=== PATIENT | female | born 1955 | race Caucasian/White ===

== ENCOUNTER 2016-06-26 07:20 | Day surgery (SDC) | payer MEDICAID ==
[~2016-06-26 07:20] MED LIST: BALANCED SALT IRRIG SOLN 15 ML OPHT.BTL ONE; DEXAMETHASONE 10 MG/ML VIAL IVP ONE; LIDO/EPI 1% **Not for Epidural 20 ML MDV ONE; METHYLENE BLUE 0.5% 50 MG/10 ML AMP ONE; MINERAL OIL 10 ML VIAL TP ONE; SKIN ADHESIVE (DERMABOND) 1 EACH TP ONE; ceFAZolin 2 GM/DEXTROSE 100 ML IV ONE
[2016-06-26] MEDS ORDERED: DEXAMETHASONE 10 MG/ML VIAL ONE (08:38)
[2016-06-26] MEDS ORDERED: CEFAZOLIN 2 GM/DEXTROSE/100 ML BAG IV ONE (08:40)
[2016-06-26] MEDS ORDERED: LR 1,000 ML IV ONE (08:45)
[2016-06-26] MEDS ORDERED: LIDOCAINE 1% 5 ML SDV ID PRN (08:45)
[2016-06-26 08:49] LABS: ANION GAP 10 mEq/L (8-16); CALCIUM 9.7 mg/dL (8.5-10.4); CARBON DIOXIDE 27 mEq/l (22-31); CHLORIDE 104 mEq/L (97-110); CREATININE 0.8 mg/dL (0.6-1.0); GLOMERULAR FILTRATION RATE > 60; GLUCOSE 113 mg/dL (70-100); POTASSIUM 3.6 mEq/L (3.5-5.2); SODIUM 141 mEq/L (134-144)
[2016-06-26] MEDS ORDERED: PROPOFOL 200 MG/20 ML VIAL ONE (10:13)
[2016-06-26] MEDS ORDERED: ROCURONIUM 50 MG/5 ML VIAL ONE (10:13)
[2016-06-26] MEDS ORDERED: fentaNYL 250 MCG/5 ML INJ ONE (10:13)
[2016-06-26] MEDS ORDERED: DEXAMETHASONE 4 MG/ML VIAL ONE ×2 (10:13)
[2016-06-26] MEDS ORDERED: METOCLOPRAMIDE 10 MG/2 ML VIAL ONE (10:14)
[2016-06-26] MEDS ORDERED: LIDOCAINE 2% 100 MG/5 ML SYR ONE (10:14)
[2016-06-26] MEDS ORDERED: MIDAZOLAM 2 MG/2 ML VIAL ONE (10:14)
[2016-06-26] MEDS ORDERED: SUGAMMADEX SODIUM 200 MG/2 ML VIAL IVP ONE (10:21)
[2016-06-26] MEDS ORDERED: REMIFENTANIL HCL 1 MG VIAL ONE (10:59)
[2016-06-26] MEDS ORDERED: LIDO/EPI 1% **Not for Epidural 20 ML MDV ONE (11:35)
[2016-06-26] MEDS ORDERED: SKIN ADHESIVE (DERMABOND) 1 EACH TP ONE (12:26)
--- NOTE | 2016-06-26 15:55 | GOP ---
[f rep st] OPERATIVE REPORT DATE OF OPERATION: 06/26/2016 SURGEON: Lucero Sage MD PYROGLAZER: None. ANESTHESIA: General endotracheal. PREOPERATIVE DIAGNOSIS: POSTOPERATIVE DIAGNOSIS: PROCEDURE PERFORMED: 1. Wide local excision of malignant scalp lesion - primary lesion measured 2 cm x 1.4 cm. 2. Margins of 2 cm for wide local excision performed with a total of a 6 cm diameter defect of the scalp. 3. Bilateral neck sentinel lymph node biopsy. FINDINGS: SPECIMENS: 1. Scalp wide local excision. Sutures marked as anterior. 2. Left neck nonsentinel lymph node. Neoprobe count less than 10. However, lymph node was incidental in my field. 3. Left neck sentinel lymph node biopsy, level 2, Neoprobe counter at over 4000 , additionally blue due to the methylene injection. 4. Right neck sentinel lymph node #2, level 3, Neoprobe count 550. 5. Right neck sentinel lymph node #3, level 3, Neoprobe count 350. 6. Right neck level 3 nonsentinel lymph node, less than 10 count by Neoprobe. ESTIMATED BLOOD LOSS: Less than 100 mL. INDICATIONS: The patient is a 60-year-old female with a pigmented lesion of her scalp of unknown duration that was biopsy proven to be melanoma greater than 0.75 cm in depth, with nonpalpable but radiographic evidence of lymph nodes in the preop workup period. The risks, benefits and alternatives of wide local excision with sentinel lymph node biopsy was discussed, and it was decided to proceed forth. DESCRIPTION OF PROCEDURE: The patient was met in preoperative holding and informed consent was confirmed. The lymphoscintigraphy images were reviewed and the lymph nodes did track bilaterally. However, they were hotter and higher in level 2, possibly the parotid on the left neck, and in level 3 on the right neck with less intensity. It was decided to go ahead and proceed forward with a sentinel lymph node biopsy. She was brought to the operating room where she underwent induction of anesthesia placed on endotracheal tube without difficulty. She was rotated 180 degrees to the operating surgeon. A left facial nerve monitor was placed in the event parotid dissection was required. This was confirmed to be working in 4 leads. Next, the crown of her scalp was shaved and a pigmented lesion measuring 2 cm x 1.4 cm slightly irregular midline at her vertex was noted. 2 cm margins were then marked out throughout for a total of a 6 cm defect. The primary site was also injected in a ring block fashion with 3 mL of methylene blue. After 5 minutes of massage of the area, she was then widely prepped and draped for the scalp, and the 6 cm resection of the scalp defect was then performed using a 15 blade scalpel. The anterior edge was marked with a silk suture. This was taken down to the level of the galea, but not including the galea. There was wide local undermining with galeotomies and then mechanical advancement and creep was then used to help facilitate some closure. Next, a pursestring suture using a #1 Prolene was then performed and the defect was closed to approximately 3.5 cm. At this point, the wound was then covered with copious bacitracin, sterile bandages and a compressive dressing. I then turned my attention to the left neck. Using the Neoprobe, it appeared that the lymph node was likely in level 2 and not the parotid. However, I did leave the facial nerve monitor intact in place. The neck incision was then infiltrated with 3 mL of 1% lidocaine with 1:100,000 epinephrine, and she was widely prepped and draped in the standard fashion. A 15 blade scalpel was used to make an incision just slightly posterior to the anterior border of the SCM and, using sharp dissection, the anterior border of the SCM was dissected until level 2 was revealed. Again, using the Neoprobe, I localized within level 2 an area of interest. At least 1 lymph node that was approximately 0.8 to 1 cm was encountered. This was removed, but found to be of relatively little avidity from the lymphoscintigraphy and visually had no evidence of the methylene blue. This was sent, however, as a specimen. Deeper in level 2B, I did encounter a methylene blue dyed lymph node that was quite avid. It was over 4000 on Neoprobe counter, and this was removed as well. The counts dropped significantly at this point. It should be noted that the primary injection site was registering over 10,000, and this specific lymph node in high level 2 of the left neck was approximately 4000. I do suspect it represents the most accurate sentinel lymph node for her. The counts in the neck dropped significantly after this to about 200 in most areas. At this point, the neck was copiously irrigated and then closed with 4-0 Monocryl in a layered fashion, with Dermabond on the skin. I turned her neck contralaterally at this point, and reprepped and redraped the entire area. Again, an incision just posterior to the anterior border of the SCM was made with a 15 blade scalpel and I dissected over the border of the SCM to reveal levels 2 and 3. Level 3 appeared to have the most avidity and again, there were 3 lymph nodes that were encountered, 1 that registered 550 that was sent as sentinel lymph node #2, and another that registered at 350 that was sent as sentinel lymph node #3. Both were in level 3 of the right neck. An additional, slightly larger than 1 cm lymph node, was also encountered but did not register very high. None of these lymph nodes visually had any methylene blue either. The counts in the neck at this point once these 3 lymph nodes were removed, however, had dropped below 100 and I therefore opted to irrigate the wound and then close her neck with 4-0 Monocryl and then Dermabond on the skin. At this point, the scalp was redressed with a better pressure dressing and she was turned back to Anesthesia for wake up. At the end of this procedure, all sponge, needle and instrument counts were correct. I personally performed all portions of this case. FLUIDS REPLACED: 1 L of crystalloid. /[id number]/MODL MTDD
== END 2016-06-26 14:40 | disposition home or self-care (01) ==
LOC: FSGY 07:20 → F3E 07:20 → UNDOADMOB 07:20 → EDSTATUS 10:30 → FSGY 14:40
PROVIDERS: ATTEND Otolaryngology
DX: C43.4 Malignant melanoma of scalp and neck (principal); R59.0 Localized enlarged lymph nodes
CPT/HCPCS: 11626; 38510; 78195; A9520; J0690; J1100; J2001; J2250; J2704; J2765; J3010; Q9968